=== PATIENT | female | born 1955 | race Caucasian/White ===

== ENCOUNTER 2019-08-19 08:37 | Day surgery (SDC) | payer OTHER, BC ==
[2019-08-16 17:08] VITALS: BMI 30.7
[2019-08-19] MEDS ORDERED: oxyCODONE HCL 5 MG TABLET PO PRN ×2 (09:42)
[2019-08-19] MEDS ORDERED: ONDANSETRON 4 MG/2 ML VIAL IVPUSH PRN (09:42)
[2019-08-19] MEDS ORDERED: LACTATED RINGERS SOLUTION 1,000 ML IV SCH (09:45)
[2019-08-19] MEDS ORDERED: MIDAZOLAM HCL 2 MG/2 ML SINGLE DOSE VIAL ONE (10:50)
[2019-08-19] MEDS ORDERED: DEXAMETHASONE SOD PHOSPHATE 4 MG/1 ML VIAL ONE (11:17)
[2019-08-19] MEDS ORDERED: LIDOCAINE HCL 1%, 10 MG/ML (20ML VIAL) ONE (11:17)
[2019-08-19] MEDS ORDERED: BENZOIN TINCTURE SWABSTICK TP ONE (11:18)
[2019-08-19] MEDS ORDERED: BUPIVACAINE HCL/PF 0.5% (5 MG/ML) 30 ML VIAL IJ ONE ×3 (11:18→12:25)
[2019-08-19] MEDS ORDERED: ceFAZolin 2 GRAM PREMIX BAG IVPB ONE (11:56)
[2019-08-19] MEDS ORDERED: LIDOCAINE HCL 1%, 10 MG/ML (20ML VIAL) NR ONE (12:00)
[2019-08-19] MEDS ORDERED: PROPOFOL 20 ML ONE ×6 (12:01→12:26)
[2019-08-19] MEDS ORDERED: DEXAMETHASONE SOD PHOSPHATE 4 MG/1 ML VIAL IVPUSH ONE (12:24)
[2019-08-19] MEDS ORDERED: BACITRACIN 50,000 UNITS VIAL TP ONE (12:24)
[2019-08-19 14:37] VITALS: TEMP 97.7
[2019-08-19 15:34] VITALS: BP 122/73; PULSE 85
[2019-08-19] MEDS ORDERED: EPHEDRINE SULFATE/0.9% NACL/PF 50 MG/10 ML SYRINGE NR ONE (16:09)
--- NOTE | 2019-08-19 23:56 | OP ---
Operative Note - Note: Operative Date: 08/19/19 Pre-Operative Diagnosis: Hallux valgus right with subungual exostectomy right. Operation: Sid bunionectomy with osteomed 2.4x16mm non cannulated partially threaded screw fixation. Subungual exostectomy right hallux distal ipj Findings: hypertrophic bone and soft tissue Implants: 2 x 2.4mm x16mm partially threaded screws, non cannulated Post-Operative Diagnosis: Same as Pre-op Surgeon: Jennifer Nichols Roofing Foreman: Binh Han Anesthesiologist/BANQUET ATTENDANT: Leda Olson Anesthesia: Local, MAC Specimens Removed: nail, bone and soft tissue right foot Estimated Blood Loss (mls): 5 Operative Report Dictated: No
--- NOTE | 2019-08-23 17:36 | PATH ---
Surgical Pathology Report Patient Name: MARKY LEACH [facility]. Rec. #: [id number] /Age/Gender: 1955 (Age: 64) / F Account: [id number] Location: [facility] SURGICAL Taken: 08/19/2019 Received: 08/22/2019 Reported: 08/23/2019 Physicians: Jennifer Nichols DPM Specimen(s) Received A: BONE RIGHT FOOT B: BONE BIG TOE RIGHT FOOT C: TOE NAIL RIGHT BIG TOE Clinical History Bunion, bone spur, exostosis right foot Final Diagnosis A. BONE, FOOT, RIGHT, EXCISION: BONE WITH DEGENERATIVE CHANGES. B. BONE, FOOT, BIG TOE, RIGHT, BUNIONECTOMY: BONE WITH DEGENERATIVE CHANGES. C. TOENAIL, BIG TOE, RIGHT, EXCISION: PORTION OF NAIL AND NAIL BED. PAS FUNGAL STAIN IS NEGATIVE. Electronically Signed Sarah Oneill M.D. Gross Description A. Received in formalin labeled "bone right foot," is a 3.4 x 2.3 x 0.4 cm aggregate of multiple bone and soft tissue fragments. A direct marketing representative portion is submitted in one cassette, following decalcification. B. Received in formalin labeled "bone from right foot big toe," is a 0.6 x 0.4 x 0.1 cm ortiz-yellow portion of bone. The specimen is submitted in toto in one cassette, following decalcification. C. Received in formalin labeled "toenail right big toe," are 2 ortiz portions of unguis measuring 0.6 x 0.5 x 0.1 cm and 1.7 x 1.7 x 0.1 cm. Ticket Collector sections are submitted in one cassette. 08/22/2019 saudi08/22/2019
--- NOTE | 2019-10-16 21:22 | OP ---
DATE OF OPERATION: 08/19/2019 PREOPERATIVE DIAGNOSIS: Hallux valgus, right, with subungual exostectomy, right big toe. POSTOPERATIVE DIAGNOSIS: Hallux valgus, right, with subungual exostectomy, right big toe. PROCEDURE: 1. Sid bunionectomy with Osteomed 2.4 x 16 mm noncannulated partially- threaded screw fixation. 2. Subungual exostectomy, right hallux distal interphalangeal joint. SURGEON: Jennifer Nichols DPM HEEL BURNISHER: Binh Han DPM PROCEDURE: After noting all preoperative vital signs within normal limits and after the surgical consent was signed and witnessed, the patient was brought to the OR , placed on the table in supine position. An IV line had been started prior to the patient coming to the OR. Once the patient was on the table, a well-padded ankle tourniquet was applied to the right ankle. A local infiltrate was applied to the 1st mpj area in a edwards block fashion. The big toe nail was avulsed. The foot was then prepped and draped in the usual sterile fashion. Once the foot was prepped and draped, it was elevated, exsanguinated, and the tourniquet was elevated to 250 mmHg on the right ankle. At this time, attention was directed to the 1st metatarsophalangeal joint, where a 6-cm long curvilinear incision was created. This incision was deepened using sharp and blunt dissection to the level of the joint capsule. All unavoidable vessels were ligated in the usual fashion. All other neurovascular structures were retracted out of the surgical site. At this time , an inverted-L incision was created in the capsule, exposing the dorsal medial eminence. Utilizing a sagittal saw, the dorsal medial eminence was resected and sent down to Pathology. The foot was then placed on its side, and utilizing a sagittal saw going from medial to lateral, a chevron osteotomy was created through and through. Once this was done, the capital fragment was moved laterally approximately 5 to 6 mm and impacted on the proximal portion of the bone. A 0.062-inch K wire was then utilized for temporary fixation. The foot was put through a range of motion and noted to be in good alignment. At this time, utilizing a 2.4-mm x 16 mm Osteomed screw was put into place using strict AO technique. The K wire was then removed. The toe was put through a range of motion and noted to be in good alignment. Utilizing a sagittal saw, the remaining protruding portion of the 1st metatarsal shaft was resected and sent down to Pathology. At this time, the area was remodeled using a rotary osteotome bur. The area was palpated and there were no remaining spicules noted. A flush was then done with copious amounts of sterile saline that had antibiotic added to it. A second 2.4-mm x 16 mm screw was put into place. The capital fragment was noted to be in good alignment. The range of motion was done once again and there was good compression of the osteotomy site. A flush was once again done. At this time, using a 2-0 Vicryl and 3-0 Vicryl, the capsular closure was done. Subcutaneous closure was then done using 4-0 Vicryl and skin was then closed in a subcuticular fashion using 5-0 Vicryl. Tincture of benzoin and Steri-Strips were then applied. Attention was then directed to the right big toe, where the nail had been previously avulsed prior to prepping the foot. Attention was directed to the nail bed. Utilizing a 15 blade, an incision was created from the proximal nail fold, avoiding the matrix, to the distal tip in a plantar-grade fashion. This incision was deepened using sharp and blunt dissection to the level of the bone. At this time, the soft tissue was liberated from the distal phalanx exostosis. The exostosis was then palpated. Utilizing a sagittal saw going in an angulated fashion from proximal dorsal to plantar distal, the exostosis was resected and sent down to Pathology. The area was then remodeled using a ball bur. Utilizing irrigation that had antibiotic added to it, the area was flushed. The skin was then closed using 4-0 nylon in a simple interrupted suture fashion. A Telfa pad, Betadine-soaked Adaptic were applied. A postoperative injection was put into place. Betadine-soaked Adaptic and dry sterile gauze was then applied to both surgical sites with a Kerlix dressing. The tourniquet was deflated and capillary filling time was instantaneous to all 5 toes of the right foot. Patient tolerated the anesthesia and the procedure well. Patient returned to recovery room with vital signs stable and vascular status intact. ABI Lynne/[id number] MTDAlvarez
== END 2019-08-19 15:59 | disposition home or self-care (01) ==
LOC: JASU-SURG 08:37
PROVIDERS: ATTEND Podiatrist Foot Surgery
PROC: 0JBQ0ZZ Excision of Right Foot Subcutaneous Tissue and Fascia, Open Approach (ICD-10-PCS; 2019-08-19)
PROC: 0QSN04Z Reposition Right Metatarsal with Internal Fixation Device, Open Approach (ICD-10-PCS; principal; 2019-08-19 11:00)
PROC: 0QBN0ZZ Excision of Right Metatarsal, Open Approach (ICD-10-PCS; 2019-08-19 11:00)
DX: M20.11 Hallux valgus (acquired), right foot (principal); M89.8X7 Other specified disorders of bone, ankle and foot
CPT/HCPCS: 73630-TC-RT-FY; 88304-TC; 88311-TC; 88312-TC; 94760